=== PATIENT | male | born 1985 | race Caucasian/White ===

== ENCOUNTER 2020-04-23 06:38 | Inpatient (IN) | payer MEDICAID, OTHER, SELFPAY ==
[~2020-04-23] VITALS: Ht 170.2 cm; Wt 69.4 kg
[2020-04-23] MEDS ORDERED: ONDANSETRON HCL 4MG/2ML INJ IV STA (06:42)
[2020-04-23] MEDS ORDERED: ACETAMINOPHEN 650MG SUPP PR STA (06:42)
[2020-04-23] MEDS ORDERED: CEFTRIAXONE 1 G PREMIX 50 ML IV ONE (06:45)
[2020-04-23] MEDS ORDERED: AZITHROMYCIN 500 MG in DEXT 5% WATER 250 ML IV ONE (06:45)
[2020-04-23] MEDS ORDERED: DEXAMETHASONE 10 MG/ML VIAL IV ONE (06:45)
[2020-04-23] MEDS ORDERED: SODIUM CHLORIDE 0.9% 1000ML BAG (SEPSIS BOLUS) IV ONE (07:15)
[2020-04-23 07:40] LABS: MEAN CORPUSCULAR HEMOGLOBIN 32.5 pg (28.0-32.0); MEAN CORPUSCULAR VOLUME 101.8 fL (80.0-94.0); MEAN PLATELET VOLUME 11.2 fl (7.4-10.4); PLATELET 63 x1000/uL (130-400); RED CELL DISTRIBUTION WIDTH 19.2 % (11.6-14.6)
[2020-04-23 07:45] LABS: BG FRACTION INSPIRED OXYGEN 100; BG HCO3 ACT 9.3 mmol/L (22.0-26.0); BG PCO2 16.4 mmHg (35.0-45.0); BG PH 7.373 (7.350-7.450); BG PO2 402.9 mmHg (75.0-100.0); BG SAMPLE SITE RIGHT RADIAL; BG TOTAL HEMOGLOBIN < 4.5 g/dL (12.0-18.0); BG VENT MODE MASK - NRB
[2020-04-23 07:46] LABS: CHLORIDE 96 mEq/L (98-107)
[2020-04-23 07:53] LABS: ETHANOL BLOOD < 10 mg/dL
[2020-04-23 07:54] LABS: HEMOGLOBIN. 3.3 g/dL (14.0-18.0)
[2020-04-23 07:55] LABS: HEMATOCRIT. 10.2 % (42.0-52.0)
[2020-04-23 07:57] LABS: CREATINE KINASE 928 IU/L (39-308)
[2020-04-23 08:02] LABS: FIBRINOGEN 148 mg/dL (200-400); INR 1.4; PROTHROMBIN TIME 14.5 sec (9.6-11.0)
[2020-04-23] MEDS ORDERED: SODIUM BICARBONATE 8.4% 1 MEQ/ML 50ML SYR IV ONE (08:15)
[2020-04-23 08:36] LABS: TOTAL IRON BINDING CAPACITY 152 ug/dL (250-450)
[2020-04-23 08:56] LABS: D-DIMER > 35.20 mg/L FEU (<0.50)
[2020-04-23 10:06] LABS: NUCLEATED RED BLOOD CELLS 11 /100 WBC; PLATELET ESTIMATE DECREASED
[2020-04-23] MEDS ORDERED: DEXT 5%/0.45% NACL 1000ML 1,000 ML IV SCH (10:23)
[2020-04-23] MEDS ORDERED: MORPHINE SULFATE 2 MG/ML CPJ (NOT FOR IM USE) IV PRN (10:30)
[2020-04-23] MEDS ORDERED: DOCUSATE SODIUM 100MG CAPSULE PO PRN (10:30)
[2020-04-23] MEDS ORDERED: PIPERACILLIN/TAZ 3.375G PREMIX 50 ML IV SCH (10:30)
[2020-04-23] MEDS ORDERED: HYDROCODONE/ACETAMINOPHEN 5/325MG TABLET PO PRN (10:30)
[2020-04-23] MEDS ORDERED: MAGNESIUM/ALUMINUM HYDROXIDE/SIMETHICONE 30ML UDC PO PRN (10:30)
[2020-04-23] MEDS ORDERED: CLONIDINE 0.1MG TABLET PO PRN (10:30)
[2020-04-23] MEDS ORDERED: GUAIFENESIN 200MG/10ML SUGAR FREE UDC PO PRN (10:30)
[2020-04-23] MEDS ORDERED: LORAZEPAM 2MG/ML CPJ IV PRN (10:30)
[2020-04-23] MEDS ORDERED: IPRATROPIUM/ALBUTEROL 0.5-3(2.5)MG/3ML NEB NEB PRN (10:30)
[2020-04-23] MEDS ORDERED: NA PHOS,M-B/NA PHOS,DI-BA ENEMA 118ML PR PRN (10:30)
[2020-04-23 10:31] LABS: CLARITY URINE CLOUDY (CLEAR); KETONES URINE NEGATIVE (NEGATIVE); LEUKOCYTE ESTERASE URINE TRACE (NEGATIVE); NITRITE URINE NEGATIVE (NEGATIVE); OCCULT BLOOD URINE 3+ (NEGATIVE); PROTEIN URINE 2+ (NEGATIVE); UROBILINOGEN URINE 0.2 E.U./dL (0.2-1.0)
[2020-04-23 10:33] LABS: COLOR URINE BLOODY (YELLOW)
[2020-04-23] MEDS ORDERED: PIPERACILLIN/TAZOBACTAM 3.375 G in DEXT 5% WATER 100 ML IV SCH (11:00)
[2020-04-23 11:21] LABS: *BARBITURATES SCREEN URINE NEGATIVE (NEGATIVE); *BENZODIAZEPINES SCREEN URINE NEGATIVE (NEGATIVE); *COCAINE SCREEN URINE NEGATIVE (NEGATIVE); METHADONE URINE SCREEN NEGATIVE (NEGATIVE)
[2020-04-23 11:22] LABS: *AMPHETAMINES SCREEN URINE NEGATIVE (NEGATIVE); CANNABINOID URINE SCREEN NEGATIVE (NEGATIVE); OPIATES URINE SCREEN NEGATIVE (NEGATIVE); PHENCYCLIDINE URINE SCREEN NEGATIVE (NEGATIVE)
[2020-04-23] MEDS ORDERED: SODIUM BICARBONATE 150 MEQ in SODIUM CHLORIDE 0.45% 1,000 ML IV SCH (11:30)
[2020-04-23 13:05] LABS: CHLORIDE 106 mEq/L (98-107)
[2020-04-23 14:23] LABS: HEMATOCRIT 25.2 % (42.0-52.0); HEMOGLOBIN 8.9 g/dL (14.0-18.0)
[2020-04-23 15:24] LABS: HEPATITIS B SURFACE ANTIGEN NEGATIVE
[2020-04-23 15:54] LABS: HEPATITIS A AB IGM NEGATIVE (NEGATIVE)
[2020-04-23 22:00] VITALS: BP 101/67
[2020-04-23 22:20] VITALS: BP 100/69
[2020-04-23 22:30] VITALS: BP 99/66
[2020-04-23 23:00] VITALS: BP 100/69
[2020-04-23 23:30] VITALS: BP 98/66
[2020-04-24] VITALS (36 sets, daily range): BP systolic 89–125; BP diastolic 56–79
[2020-04-24] MEDS ORDERED: SODIUM BICARBONATE 150 MEQ in SODIUM CHLORIDE 0.45% 1,000 ML IV SCH ×2
[2020-04-24 00:05] LABS: HEMATOCRIT 21.9 % (42.0-52.0); HEMOGLOBIN 7.8 g/dL (14.0-18.0)
[2020-04-24] MEDS ORDERED: EMTR1TAB8 MT (01:13)
[2020-04-24] MEDS: PIPERACILLIN/TAZOBACTAM 3.375 G in DEXT 5% WATER 100 ML IV SCH ×2 (01:36→05:31)
[2020-04-24 06:15] LABS: HEMATOCRIT. 23.5 % (42.0-52.0); HEMOGLOBIN. 8.1 g/dL (14.0-18.0); MEAN CORPUSCULAR HEMOGLOBIN 31.1 pg (28.0-32.0); MEAN CORPUSCULAR VOLUME 89.9 fL (80.0-94.0); MEAN PLATELET VOLUME 9.7 fl (7.4-10.4); RED BLOOD CELL COUNT 2.61 mill/uL (4.7-6.1); RED CELL DISTRIBUTION WIDTH 15.6 % (11.6-14.6)
[2020-04-24 06:25] LABS: CHLORIDE 111 mEq/L (98-107)
[2020-04-24 06:27] LABS: PLATELET 34 x1000/uL (130-400)
[2020-04-24 06:32] LABS: LDL CHOLESTEROL 27 mg/dL (5-100)
[2020-04-24 06:34] LABS: HDL CHOLESTEROL 11 mg/dL (40-59); TOTAL IRON BINDING CAPACITY 225 ug/dL (250-450)
[2020-04-24 06:36] LABS: T4 FREE 1.16 ng/dL (0.76-1.46)
[2020-04-24] MEDS: DEXT 5%/0.45% NACL 1000ML 1,000 ML IV SCH ×2 (10:34→21:39)
[2020-04-24 10:51] LABS: NUCLEATED RED BLOOD CELLS 7 /100 WBC
[2020-04-24 10:52] LABS: PLATELET ESTIMATE MARKEDLY DECREASED
[2020-04-24] MEDS: CEFEPIME 1,000 MG in DEXTROSE 5% WATER 50 ML IV SCH ×2 (11:31→21:38)
[2020-04-24] MEDS: METRONIDAZOLE 500MG TABLET PO SCH ×2 (11:31→18:21)
[2020-04-24] MEDS ORDERED: DIGOXIN 500MCG/2ML AMP IV NR (22:55)
[2020-04-24] MEDS ORDERED: DIGOXIN 500MCG/2ML AMP IV SCH (23:00)
[2020-04-25] VITALS (18 sets, daily range): BP systolic 92–148; BP diastolic 41–74
[2020-04-25] MEDS: METRONIDAZOLE 500MG TABLET PO SCH ×3 (02:32→19:14)
[2020-04-25] MEDS: ACETAMINOPHEN 325MG TABLET PO PRN (02:33)
[2020-04-25] MEDS: DEXT 5%/0.45% NACL 1000ML 1,000 ML IV SCH (05:37)
[2020-04-25] MEDS: CEFEPIME 1,000 MG in DEXTROSE 5% WATER 50 ML IV SCH ×3 (05:37→20:32)
[2020-04-25 07:50] LABS: MEAN CORPUSCULAR HEMOGLOBIN 31.3 pg (28.0-32.0); RED BLOOD CELL COUNT 1.66 mill/uL (4.7-6.1); RED CELL DISTRIBUTION WIDTH 15.5 % (11.6-14.6)
[2020-04-25 08:26] LABS: HEMOGLOBIN. 5.2 g/dL (14.0-18.0)
[2020-04-25 08:27] LABS: HEMATOCRIT. 15.1 % (42.0-52.0); PLATELET 43 x1000/uL (130-400)
[2020-04-25] MEDS ORDERED: EMTR1TAB13 MT (08:50)
[2020-04-25] MEDS ORDERED: VITA50005 MT (08:51)
[2020-04-25 10:11] LABS: ABSOLUTE LYMPHOCYTES 0.5 x10E3/uL (0.7-3.1); ABSOLUTE MONOCYTES 0.2 x10E3/uL (0.1-0.9); ABSOLUTE NEUTROPHILS 4.6 x10E3/uL (1.4-7.0); BASOPHILS 0 % (Not Estab.); HEMATOCRIT 25.1 % (37.5-51.0); HEMATOLOGY COMMENT Note: (.); HEMOGLOBIN 8.5 g/dL (13.0-17.7); LYMPHOCYTES 10 % (Not Estab.); MEAN CORPUSCULAR HEMOGLOBIN 31.4 pg (26.6-33.0); MEAN CORPUSCULAR HGB CONC. 33.9 g/dL (31.5-35.7); MEAN CORPUSCULAR VOLUME 93 fL (79-97); MONOCYTES 4 % (Not Estab.); NEUTROPHILS 59 % (Not Estab.); NUCLEATED RBC 14 % (0 - 0); PLATELETS 19 x10E3/uL (150-450); RBC 2.71 x10E6/uL (4.14-5.80); RED CELL DISTRIBUTION WIDTH 15.7 % (11.6-15.4); WBC 5.4 x10E3/uL (3.4-10.8)
[2020-04-25 11:04] LABS: NUCLEATED RED BLOOD CELLS 12 /100 WBC
[2020-04-25 11:05] LABS: PLATELET ESTIMATE DECREASED
[2020-04-25 13:19] LABS: CHLORIDE 114 mEq/L (98-107)
[2020-04-25 13:51] LABS: CREATINE KINASE 1827 IU/L (39-308)
[2020-04-25] MEDS: PANTOPRAZOLE SODIUM 40 MG/VIAL IV SCH (14:29)
[2020-04-26] VITALS: BP 115/78
[2020-04-26] MEDS: METRONIDAZOLE 500MG TABLET PO SCH ×3 (03:47→18:05)
[2020-04-26] MEDS: CEFEPIME 1,000 MG in DEXTROSE 5% WATER 50 ML IV SCH ×3 (03:47→20:44)
[2020-04-26 04:00] VITALS: BP 113/81
[2020-04-26 05:47] LABS: HEMATOCRIT. 22.2 % (42.0-52.0); HEMOGLOBIN. 7.7 g/dL (14.0-18.0); MEAN CORPUSCULAR HEMOGLOBIN 30.8 pg (28.0-32.0); MEAN PLATELET VOLUME 8.7 fl (7.4-10.4); RED BLOOD CELL COUNT 2.49 mill/uL (4.7-6.1); RED CELL DISTRIBUTION WIDTH 14.9 % (11.6-14.6)
[2020-04-26 05:54] LABS: CHLORIDE 108 mEq/L (98-107)
[2020-04-26 05:58] LABS: PLATELET 35 x1000/uL (130-400)
[2020-04-26 06:00] LABS: PHOSPHORUS 2.4 mg/dL (2.5-4.9)
[2020-04-26 08:00] VITALS: BP 121/71
[2020-04-26] MEDS: PANTOPRAZOLE SODIUM 40 MG/VIAL IV SCH (09:05)
[2020-04-26 10:06] LABS: % CD 3 POS. LYMPHOCYTES 77.1 % (57.5-86.2); % CD 4 POS. LYMPHOCYTES 15.5 % (30.8-58.5); % CD 8 POS. LYMPH 61.1 % (12.0-35.5); ABSOLUTE CD 3 386 /uL (622-2402); ABSOLUTE CD 4 HELPER 78 /uL (359-1519); ABSOLUTE CD 8 SUPPRESSOR 306 /uL (109-897); CD4/CD8 RATIO 0.25 (0.92-3.72)
[2020-04-26 12:00] VITALS: BP 127/74
[2020-04-26 16:00] VITALS: BP 122/72
[2020-04-26 18:12] LABS: NUCLEATED RED BLOOD CELLS 10 /100 WBC
[2020-04-26 18:13] LABS: PLATELET ESTIMATE MARKEDLY DECREASED
[2020-04-26 20:00] VITALS: BP 108/68
[2020-04-27] VITALS: BP 116/70
[2020-04-27] MEDS: METRONIDAZOLE 500MG TABLET PO SCH ×3 (02:37→19:44)
[2020-04-27] MEDS: CEFEPIME 1,000 MG in DEXTROSE 5% WATER 50 ML IV SCH ×3 (03:47→20:20)
[2020-04-27 04:00] VITALS: BP 126/73
[2020-04-27] MEDS: ACETAMINOPHEN 325MG TABLET PO PRN ×2 (04:29→20:46)
[2020-04-27 06:48] LABS: HEMATOCRIT. 23.5 % (42.0-52.0); HEMOGLOBIN. 8.2 g/dL (14.0-18.0); LYMPHOCYTES % 10.8 % (20.0-50.0); MEAN CORPUSCULAR HEMOGLOBIN 31.3 pg (28.0-32.0); MEAN CORPUSCULAR VOLUME 89.8 fL (80.0-94.0); MEAN PLATELET VOLUME 10.8 fl (7.4-10.4); MONOCYTES % 5.8 % (2.0-8.0); NEUTROPHILS % 83.4 % (40.0-76.0); RED BLOOD CELL COUNT 2.62 mill/uL (4.7-6.1); RED CELL DISTRIBUTION WIDTH 14.8 % (11.6-14.6)
[2020-04-27 06:49] LABS: CHLORIDE 103 mEq/L (98-107)
[2020-04-27 07:01] LABS: PLATELET 30 x1000/uL (130-400)
[2020-04-27 08:00] VITALS: BP 112/61
[2020-04-27] MEDS: PANTOPRAZOLE SODIUM 40 MG/VIAL IV SCH (09:59)
[2020-04-27 12:00] VITALS: BP 100/65
[2020-04-27 14:39] LABS: PLATELET ESTIMATE MARKEDLY DECREASED
[2020-04-27 16:00] VITALS: BP 98/66
[2020-04-27 20:00] VITALS: BP 105/63
[2020-04-27] MEDS: ONDANSETRON HCL 4MG/2ML INJ IV PRN (20:20)
[2020-04-28] VITALS (38 sets, daily range): BP systolic 85–140; BP diastolic 46–122
[2020-04-28] MEDS: METRONIDAZOLE 500MG TABLET PO SCH ×3 (03:10→19:20)
[2020-04-28] MEDS: CEFEPIME 1,000 MG in DEXTROSE 5% WATER 50 ML IV SCH ×3 (03:10→19:20)
[2020-04-28] MEDS: METOPROLOL TARTRATE 5MG/5ML VIAL IV PRN (03:36)
[2020-04-28 07:21] LABS: CHLORIDE 106 mEq/L (98-107)
[2020-04-28 07:35] LABS: HEMATOCRIT. 23.2 % (42.0-52.0); HEMOGLOBIN. 7.9 g/dL (14.0-18.0); MEAN CORPUSCULAR HEMOGLOBIN 31.5 pg (28.0-32.0); MEAN CORPUSCULAR VOLUME 92.2 fL (80.0-94.0); MEAN PLATELET VOLUME 12.6 fl (7.4-10.4); RED BLOOD CELL COUNT 2.52 mill/uL (4.7-6.1); RED CELL DISTRIBUTION WIDTH 15.4 % (11.6-14.6)
[2020-04-28 09:00] LABS: PLATELET 32 x1000/uL (130-400)
[2020-04-28] MEDS: PANTOPRAZOLE SODIUM 40 MG/VIAL IV SCH ×2 (09:00→09:27)
[2020-04-28] MEDS ORDERED: NON FORMULARY PATIENT HOME MED XX SCH (09:00)
[2020-04-28] MEDS: METOPROLOL TARTRATE 5MG/5ML VIAL IV SCH ×2 (09:27→10:10)
[2020-04-28] MEDS: ODEFSEY PO SCH (09:27)
[2020-04-28] MEDS: ACETAMINOPHEN 325MG TABLET PO PRN (09:28)
[2020-04-28] MEDS ORDERED: SODIUM CHLORIDE 0.9% 500 ML IV ONE (10:15)
[2020-04-28] MEDS ORDERED: PHENYLEPHRINE 100 MG in DEXT 5% WATER 240 ML IV PRN (10:30)
[2020-04-28 10:42] LABS: NUCLEATED RED BLOOD CELLS 5 /100 WBC; PLATELET ESTIMATE MARKEDLY DECREASED
[2020-04-28] MEDS ORDERED: ALBUMIN HUMAN 25GM/500ML (5%) IV SCH (11:00)
[2020-04-28 12:24] LABS: MEAN CORPUSCULAR HEMOGLOBIN 31.3 pg (28.0-32.0); MEAN CORPUSCULAR VOLUME 90.3 fL (80.0-94.0); MEAN PLATELET VOLUME 11.6 fl (7.4-10.4); RED BLOOD CELL COUNT 1.86 mill/uL (4.7-6.1)
[2020-04-28 12:41] LABS: HEMATOCRIT. 16.8 % (42.0-52.0); HEMOGLOBIN. 5.8 g/dL (14.0-18.0); PLATELET 29 x1000/uL (130-400)
[2020-04-28 13:19] LABS: NUCLEATED RED BLOOD CELLS 1 /100 WBC
[2020-04-28 13:20] LABS: PLATELET ESTIMATE MARKEDLY DECREASED
[2020-04-28] MEDS ORDERED: LIDOCAINE HCL 1% 20ML VIAL (Pyxis) INJ ONE (14:19)
[2020-04-28] MEDS ORDERED: SODIUM BICARBONATE 4% (2.4MEQ) 5ML VIAL IV ONE (14:19)
[2020-04-28 17:02] LABS: INR 1.4; PROTHROMBIN TIME 14.6 sec (9.6-11.0)
[2020-04-28 23:19] LABS: HEMOGLOBIN. 8.4 g/dL (14.0-18.0); MEAN CORPUSCULAR HEMOGLOBIN 31.5 pg (28.0-32.0); MEAN CORPUSCULAR VOLUME 89.8 fL (80.0-94.0); RED BLOOD CELL COUNT 2.67 mill/uL (4.7-6.1)
[2020-04-28 23:40] LABS: PLATELET 49 x1000/uL (130-400)
[2020-04-29] VITALS (51 sets, daily range): BP systolic 80–125; BP diastolic 43–71
[2020-04-29 03:03] LABS: PLATELET ESTIMATE MARKEDLY DECREASED
[2020-04-29] MEDS: METRONIDAZOLE 500MG TABLET PO SCH ×3 (03:29→18:20)
[2020-04-29] MEDS: CEFEPIME 1,000 MG in DEXTROSE 5% WATER 50 ML IV SCH ×3 (03:29→21:01)
[2020-04-29] MEDS: ACETAMINOPHEN 325MG TABLET PO PRN (03:42)
[2020-04-29 06:25] LABS: CHLORIDE 107 mEq/L (98-107)
[2020-04-29 06:34] LABS: HEMATOCRIT. 21.9 % (42.0-52.0); HEMOGLOBIN. 7.6 g/dL (14.0-18.0); MEAN CORPUSCULAR HEMOGLOBIN 31.3 pg (28.0-32.0); MEAN CORPUSCULAR VOLUME 89.5 fL (80.0-94.0); MEAN PLATELET VOLUME 10.3 fl (7.4-10.4); RED BLOOD CELL COUNT 2.44 mill/uL (4.7-6.1); RED CELL DISTRIBUTION WIDTH 15.1 % (11.6-14.6)
[2020-04-29 06:36] LABS: HAPTOGLOBIN <31.0 mg/dL (30-200)
[2020-04-29 06:58] LABS: PLATELET 41 x1000/uL (130-400)
[2020-04-29] MEDS ORDERED: SODIUM PHOS,M-BASIC-D-BASIC 20 MM in DEXT 5% WATER 243.3333 ML IV ONE (07:30)
[2020-04-29] MEDS: ODEFSEY PO SCH ×2 (08:00→09:58)
[2020-04-29] MEDS: PANTOPRAZOLE SODIUM 40 MG/VIAL IV SCH (08:05)
[2020-04-29 09:49] LABS: NUCLEATED RED BLOOD CELLS 4 /100 WBC
[2020-04-29 09:50] LABS: PLATELET ESTIMATE DECREASED
[2020-04-29 17:04] LABS: HEMATOCRIT 23.8 % (42.0-52.0); HEMOGLOBIN 8.2 g/dL (14.0-18.0)
[2020-04-29] MEDS: METOPROLOL TARTRATE 5MG/5ML VIAL IV PRN (20:02)
[2020-04-29] MEDS ORDERED: DILTIAZEM HCL 5MG/ML 5ML VIAL IV NR ×2 (21:57→22:30)
[2020-04-29] MEDS ORDERED: DILTIAZEM HCL 125 MG in DEXT 5% WATER 100 ML IV SCH (22:00)
[2020-04-29 22:38] LABS: HEMATOCRIT 20.1 % (42.0-52.0)
[2020-04-29] MEDS: ONDANSETRON HCL 4MG/2ML INJ IV PRN (23:01)
[2020-04-30] VITALS (35 sets, daily range): BP systolic 54–148; BP diastolic 28–102
[2020-04-30] MEDS: DEXT 5%/0.45% NACL 1000ML 1,000 ML IV SCH ×3 (02:16→22:18)
[2020-04-30] MEDS: ACETAMINOPHEN 325MG TABLET PO PRN ×2 (02:17→15:17)
[2020-04-30 04:07] LABS: OVA & PARASITE EXAM Final report (.)
[2020-04-30 06:38] LABS: HEMATOCRIT. 24.4 % (42.0-52.0); HEMOGLOBIN. 8.6 g/dL (14.0-18.0); MEAN CORPUSCULAR HEMOGLOBIN 31.9 pg (28.0-32.0); MEAN CORPUSCULAR VOLUME 90.8 fL (80.0-94.0); MEAN PLATELET VOLUME 10.7 fl (7.4-10.4); RED BLOOD CELL COUNT 2.68 mill/uL (4.7-6.1); RED CELL DISTRIBUTION WIDTH 15.5 % (11.6-14.6)
[2020-04-30 06:40] LABS: PHOSPHORUS 3.2 mg/dL (2.5-4.9)
[2020-04-30 06:53] LABS: PLATELET 25 x1000/uL (130-400)
[2020-04-30] MEDS: PANTOPRAZOLE SODIUM 40 MG/VIAL IV SCH (09:10)
[2020-04-30] MEDS: ODEFSEY PO SCH (09:10)
[2020-04-30] MEDS ORDERED: DILTIAZEM HCL 5MG/ML 5ML VIAL IV SCH (09:15)
[2020-04-30] MEDS: SODIUM CHLORIDE 0.9% 500 ML IV SCH ×2 (09:30→19:21)
[2020-04-30] MEDS: MIDODRINE HCL 5MG TABLET PO SCH ×3 (09:35→16:33)
[2020-04-30 09:55] LABS: NUCLEATED RED BLOOD CELLS 4 /100 WBC; PLATELET ESTIMATE MARKEDLY DECREASED
[2020-04-30] MEDS ORDERED: DILTIAZEM HCL 125 MG in DEXT 5% WATER 100 ML IV SCH ×3 (10:00→23:00)
[2020-04-30] MEDS: ONDANSETRON HCL 4MG/2ML INJ IV PRN (15:56)
[2020-04-30 17:47] LABS: MEAN CORPUSCULAR HEMOGLOBIN 31.6 pg (28.0-32.0); MEAN CORPUSCULAR VOLUME 91.3 fL (80.0-94.0); MEAN PLATELET VOLUME 12.1 fl (7.4-10.4); RED BLOOD CELL COUNT 1.94 mill/uL (4.7-6.1); RED CELL DISTRIBUTION WIDTH 15.6 % (11.6-14.6)
[2020-04-30 18:14] LABS: HEMATOCRIT. 17.7 % (42.0-52.0); HEMOGLOBIN. 6.1 g/dL (14.0-18.0); PLATELET 35 x1000/uL (130-400)
[2020-04-30] MEDS ORDERED: SODIUM CHLORIDE 0.9% 500 ML IV NR (19:03)
[2020-04-30] MEDS: PHYTONADIONE 10MG/ML AMP SUBCUT SCH (22:17)
[2020-04-30 22:43] LABS: NUCLEATED RED BLOOD CELLS 4 /100 WBC
[2020-04-30 22:45] LABS: PLATELET ESTIMATE MARKEDLY DECREASED
[2020-04-30] MEDS: PHENYLEPHRINE 100 MG in DEXT 5% WATER 240 ML IV PRN (23:01)
[2020-05-01] VITALS (76 sets, daily range): BP systolic 36–157; BP diastolic 16–102
[2020-05-01] MEDS ORDERED: NOREPINEPHRINE 32 MG in DEXT 5% WATER 218 ML IV PRN (02:15)
[2020-05-01 02:30] LABS: HEMOGLOBIN 5.8 g/dL (14.0-18.0)
[2020-05-01 02:31] LABS: HEMATOCRIT 17.2 % (42.0-52.0)
[2020-05-01 02:52] LABS: BG BASE EXCESS -25.3 mmol/L (-2.0-2.0); BG CARBOXYHEMOGLOBIN 0.5 % (0.5-1.5); BG DEOXYHEMOGLOBIN 0.8 % (0.0-5.0); BG FRACTION INSPIRED OXYGEN 100; BG HCO3 ACT 3.8 mmol/L (22.0-26.0); BG METHEMOGLOBIN 0.7 % (0.0-1.5); BG OXYGEN SATURATION 99.2 % (92.0-98.5); BG PCO2 15.8 mmHg (35.0-45.0); BG PH 6.995 (7.350-7.450); BG SAMPLE SITE RIGHT FEMORAL; BG TOTAL HEMOGLOBIN 6.1 g/dL (12.0-18.0); BG VENT MODE MASK - NRB
[2020-05-01] MEDS ORDERED: NOREPINEPHRINE 8MG/250ML PMX 250ML IV PRN (03:00)
[2020-05-01] MEDS ORDERED: SODIUM BICARBONATE 150 MEQ in DEXT 5%/0.45% NACL 1000ML 1,000 ML IV SCH (03:15)
[2020-05-01] MEDS ORDERED: SODIUM BICARBONATE 8.4% 1 MEQ/ML 50ML SYR IV NR ×2 (03:15→04:45)
[2020-05-01] MEDS: VASOPRESSIN 20 UNIT in SODIUM CHLORIDE 0.9% 99 ML IV PRN ×2 (03:36→12:00)
[2020-05-01] MEDS: PROPOFOL 10MG/ML 100ML 100 ML IV PRN ×2 (03:38→04:08)
[2020-05-01 04:36] LABS: BG BASE EXCESS -19.1 mmol/L (-2.0-2.0); BG CARBOXYHEMOGLOBIN 0.1 % (0.5-1.5); BG DEOXYHEMOGLOBIN 1.1 % (0.0-5.0); BG FRACTION INSPIRED OXYGEN 100; BG HCO3 ACT 8.1 mmol/L (22.0-26.0); BG METHEMOGLOBIN 0.9 % (0.0-1.5); BG OXYGEN SATURATION 98.9 % (92.0-98.5); BG OXYHEMOGLOBIN 97.9 % (94.0-97.0); BG PCO2 23.9 mmHg (35.0-45.0); BG PH 7.149 (7.350-7.450); BG SAMPLE SITE RIGHT FEMORAL; BG TIDAL VOLUME(mL) 550 mL; BG VENT MODE VENT - A/C; BG VENT RATE 16 set
[2020-05-01 06:19] LABS: HEMATOCRIT. 23.9 % (42.0-52.0); HEMOGLOBIN. 7.9 g/dL (14.0-18.0); MEAN CORPUSCULAR HEMOGLOBIN 30.7 pg (28.0-32.0); MEAN CORPUSCULAR VOLUME 93.6 fL (80.0-94.0); MEAN PLATELET VOLUME 11.3 fl (7.4-10.4); PLATELET 51 x1000/uL (130-400); RED BLOOD CELL COUNT 2.56 mill/uL (4.7-6.1); RED CELL DISTRIBUTION WIDTH 14.9 % (11.6-14.6)
[2020-05-01] MEDS ORDERED: DOPAMINE 800MG PREMIX (DOUBLE) 250 ML IV PRN (08:00)
[2020-05-01] MEDS: PHENYLEPHRINE 100 MG in DEXT 5% WATER 240 ML IV PRN (08:15)
[2020-05-01] MEDS ORDERED: SODIUM CHLORIDE 0.9% 1,000 ML IV SCH (09:15)
[2020-05-01 10:08] LABS: CHLORIDE 107 mEq/L (98-107)
[2020-05-01] MEDS: PANTOPRAZOLE SODIUM 40 MG/VIAL IV SCH (10:12)
[2020-05-01] MEDS: PHYTONADIONE 10MG/ML AMP SUBCUT SCH (10:12)
[2020-05-01] MEDS: MIDODRINE HCL 5MG TABLET PO SCH ×2 (10:13→15:14)
[2020-05-01] MEDS: ODEFSEY PO SCH (10:15)
[2020-05-01 10:53] LABS: BG CARBOXYHEMOGLOBIN 0.2 % (0.5-1.5); BG DEOXYHEMOGLOBIN 22.1 % (0.0-5.0); BG METHEMOGLOBIN 1.5 % (0.0-1.5); BG OXYGEN SATURATION 77.5 % (92.0-98.5); BG OXYHEMOGLOBIN 76.2 % (94.0-97.0); BG PCO2 38.2 mmHg (35.0-45.0); BG PH < 6.680 (7.350-7.450); BG PO2 68.8 mmHg (75.0-100.0); BG SAMPLE SITE RIGHT FEMORAL; BG TIDAL VOLUME(mL) 450 mL; BG VENT MODE VENT - A/C; BG VENT RATE 20 set
[2020-05-01] MEDS ORDERED: NOREPINEPHRINE 8 MG in DEXT 5% WATER 242 ML IV PRN (11:00)
[2020-05-01] MEDS ORDERED: DEXTROSE 50% WATER 50ML SYRINGE IV SCH (11:15)
[2020-05-01] MEDS ORDERED: INSULIN REGULAR (HUMULIN R) 300UNITS/3ML IV SCH (11:15)
[2020-05-01] MEDS ORDERED: SODIUM BICARBONATE 8.4% 1 MEQ/ML 50ML SYR IV SCH ×3 (11:15→13:00)
[2020-05-01 12:46] LABS: BG CARBOXYHEMOGLOBIN 0.3 % (0.5-1.5); BG DEOXYHEMOGLOBIN 14.5 % (0.0-5.0); BG HCO3 ACT 6.8 mmol/L (22.0-26.0); BG METHEMOGLOBIN 1.4 % (0.0-1.5); BG OXYGEN SATURATION 85.2 % (92.0-98.5); BG OXYHEMOGLOBIN 83.8 % (94.0-97.0); BG PCO2 46.9 mmHg (35.0-45.0); BG PH 6.778 (7.350-7.450); BG PO2 72.5 mmHg (75.0-100.0); BG SAMPLE SITE RIGHT BRACHIAL; BG TIDAL VOLUME(mL) 450 mL; BG TOTAL HEMOGLOBIN 6.5 g/dL (12.0-18.0); BG VENT MODE VENT - A/C; BG VENT RATE 20 set
[2020-05-01] MEDS ORDERED: SODIUM POLYSTYRENE SULFONATE 15 G/60 ML BOT PO SCH (13:00)
[2020-05-01 21:16] LABS: NUCLEATED RED BLOOD CELLS 14 /100 WBC; PLATELET ESTIMATE MARKEDLY DECREASED
== END 2020-05-01 17:14 | disposition expired | DRG 890 ==
LOC: ER 06:46 → MICUSO 07:01 → EDBEDREQ 07:26 → EDBEDREQTM 07:26 → ENRESERV 21:07 → 7WST 04-24 16:30 → 6WST 04-25 10:45 → CVICU 04-28 10:15 → 3WST 04-29 15:59 → CVICU 04-30 21:04
PROVIDERS: ADMIT Internal Medicine; ATTEND Internal Medicine
PROC: 30233N1 Transfusion of Nonautologous Red Blood Cells into Peripheral Vein, Percutaneous Approach (ICD-10-PCS; principal; 2020-04-23)
PROC: 30233M1 Transfusion of Nonautologous Plasma Cryoprecipitate into Peripheral Vein, Percutaneous Approach (ICD-10-PCS; 2020-04-28)
PROC: 02HV33Z Insertion of Infusion Device into Superior Vena Cava, Percutaneous Approach (ICD-10-PCS; 2020-04-29)
PROC: B548ZZA Ultrasonography of Superior Vena Cava, Guidance (ICD-10-PCS; 2020-04-29)
PROC: 30233R1 Transfusion of Nonautologous Platelets into Peripheral Vein, Percutaneous Approach (ICD-10-PCS; 2020-04-30)
PROC: 5A1935Z Respiratory Ventilation, Less than 24 Consecutive Hours (ICD-10-PCS; 2020-05-01)
PROC: 0BH18EZ Insertion of Endotracheal Airway into Trachea, Via Natural or Artificial Opening Endoscopic (ICD-10-PCS; 2020-05-01)
DX: A41.9 Sepsis, unspecified organism (principal); J96.01 Acute respiratory failure with hypoxia; N17.0 Acute kidney failure with tubular necrosis; D50.9 Iron deficiency anemia, unspecified; D69.59 Other secondary thrombocytopenia; E11.65 Type 2 diabetes mellitus with hyperglycemia; E43 Unspecified severe protein-calorie malnutrition; E55.0 Rickets, active; E87.1 Hypo-osmolality and hyponatremia; E87.2 Acidosis; K85.90 Acute pancreatitis without necrosis or infection, unspecified; M62.82 Rhabdomyolysis; K72.00 Acute and subacute hepatic failure without coma; B20 Human immunodeficiency virus [HIV] disease; E87.5 Hyperkalemia; I47.1 Supraventricular tachycardia; Z66 Do not resuscitate; D68.69 Other thrombophilia; K92.2 Gastrointestinal hemorrhage, unspecified; Z20.828 Contact with and (suspected) exposure to other viral communicable diseases; R31.9 Hematuria, unspecified; Z79.899 Other long term (current) drug therapy; Z86.74 Personal history of sudden cardiac arrest; Z68.24 Body mass index [BMI] 24.0-24.9, adult; R57.1 Hypovolemic shock; D68.9 Coagulation defect, unspecified
CPT/HCPCS: 31500; 36415; 36600; 71045; 76700; 76937; 78278; 80048; 80053; 80061; 80076; 80305; 80320; 81003; 82140; 82270; 82330; 82375; 82550; 82728; 82805; 82962; 83010; 83540; 83550; 83605; 83615; 83735; 83880; 83930; 84100; 84145; 84439; 84443; 84484; 85014; 85018; 85025; 85044; 85379; 85384; 86140; 86359; 86360; 86705; 86709; 86803; 86850; 86880; 86900; 86920; 86927; 87015; 87045; 87177; 87209; 87340; 87427; 87449; 87493; 87635; 89055; 93005; 93306; 93970; 94002; 94003; 99291; A9560; C1725; C1769; C9113; J0456; J0692; J0696; J1100; J1160; J1265; J1815; J2060; J2270; J2370; J2405; J2543; J2704; J3430; J3490; J7030; J7050; J7060; P9016; P9017; P9021; P9034; P9041; G0480